=== PATIENT | male | born 1970 | race Caucasian/White ===

== ENCOUNTER 2017-05-30 05:51 | Emergency (ER) | payer MEDICAID ==
[~2017-05-30] VITALS: Ht 172.7 cm; Wt 102.0 kg
[2017-05-30] MEDS ORDERED: ONDANSETRON HCL 4MG/2ML VIAL IV STA (06:19)
[2017-05-30] MEDS ORDERED: SODIUM CHLORIDE 0.9% 1,000 ML IV ONE (06:19)
[2017-05-30 06:49] LABS: BASOPHILS % 0.5 % (0.0-2.0); EOSINOPHILS % 0.2 % (0.0-5.0); HEMOGLOBIN. 18.7 g/dL (14.0-18.0); LYMPHOCYTES % 19.5 % (20.0-50.0); MEAN CORPUSCULAR VOLUME 88.4 fL (80.0-94.0); MEAN PLATELET VOLUME 8.3 fl (7.4-10.4); MONOCYTES % 7.5 % (2.0-8.0); NEUTROPHILS % 72.3 % (40.0-76.0); PLATELET 333 x1000/uL (130-400); RED BLOOD CELL COUNT 6.22 mill/uL (4.7-6.1); RED CELL DISTRIBUTION WIDTH 13.4 % (11.6-14.6)
[2017-05-30 06:50] LABS: INR 1.1; PROTHROMBIN TIME 11.3 sec (9.4-11.6)
[2017-05-30 06:56] LABS: CARBON DIOXIDE 11 mEq/L (21-32); CHLORIDE 104 mEq/L (98-107)
[2017-05-30 06:58] LABS: TROPONIN I < 0.02 ng/mL (0.00-0.04)
[2017-05-30 07:14] LABS: CARBAMAZEPINE < 0.5 ug/mL (4-12); PHENOBARBITAL < 2.1 ug/mL (15.0-40.0)
[2017-05-30] MEDS ORDERED: IOHEXOL-300 100 ML BOTTLE ONE (07:52)
[2017-05-30] MEDS ORDERED: SODIUM CHLORIDE 0.9% 1,500 ML IV ONE (08:08)
[2017-05-30 10:50] VITALS: BP 148/90
== END 2017-05-30 11:08 | disposition left against medical advice (07) ==
LOC: ER 05:51 → ENRESERV 07:04 → CANRESERV 07:04 → ER 11:08 → CANBEDREQ 17:55
DX: R56.9 Unspecified convulsions (principal); R11.0 Nausea; N17.9 Acute kidney failure, unspecified; D72.829 Elevated white blood cell count, unspecified; M54.2 Cervicalgia
CPT/HCPCS: 36415; 70450; 71010; 74177; 80053; 80156; 80165; 80184; 80185; 83690; 84484; 85025; 85610; 93005; 96361; 96374; 99285; J2405; J7030; Q9967; Z7610

== ENCOUNTER 2018-03-16 21:34 | Emergency (ER) | payer SELFPAY ==
[~2018-03-16] VITALS: Ht 172.7 cm; Wt 100.0 kg
[2018-03-17 00:45] VITALS: BP 140/102
== END 2018-03-17 03:30 | disposition left against medical advice (07) ==
LOC: ER 21:34
DX: Z53.21 Procedure and treatment not carried out due to patient leaving prior to being seen by health care provider (principal)
CPT/HCPCS: 82962

== ENCOUNTER 2018-03-19 09:14 | Inpatient (IN) | payer SELFPAY ==
[~2018-03-19] VITALS: Ht 175.3 cm; Wt 98.0 kg
[2018-03-19] VITALS (8 sets, daily range): BP systolic 133–143; BP diastolic 85–111
[2018-03-19] MEDS ORDERED: SODIUM CHLORIDE 0.9% 1,000 ML IV ONE (09:32)
[2018-03-19 09:58] LABS: HEMATOCRIT. 53.1 % (42.0-52.0); HEMOGLOBIN. 17.4 g/dL (14.0-18.0); MEAN CORPUSCULAR HEMOGLOBIN 29.5 pg (28.0-32.0); MEAN CORPUSCULAR VOLUME 90.1 fL (80.0-94.0); MEAN PLATELET VOLUME 8.8 fl (7.4-10.4); PLATELET 458 x1000/uL (130-400); RED CELL DISTRIBUTION WIDTH 14.1 % (11.6-14.6)
[2018-03-19 10:01] LABS: CHLORIDE 106 mEq/L (98-107)
[2018-03-19 10:10] LABS: ETHANOL BLOOD < 10 mg/dL
[2018-03-19] MEDS ORDERED: SODIUM BICARBONATE 8.4% 1 MEQ/ML 50ML SYR IV ONE (10:45)
[2018-03-19 10:46] LABS: PLATELET ESTIMATE INCREASED
[2018-03-19 11:56] LABS: BG BASE EXCESS -0.3 mmol/L (-2.0-2.0); BG CARBOXYHEMOGLOBIN 0.2 % (0.5-1.5); BG DEOXYHEMOGLOBIN 5.9 % (0.0-5.0); BG FRACTION INSPIRED OXYGEN 21; BG HCO3 ACT 23.5 mmol/L (22.0-26.0); BG METHEMOGLOBIN 0.5 % (0.0-1.5); BG OXYGEN SATURATION 94.1 % (92.0-98.5); BG OXYHEMOGLOBIN 93.4 % (94.0-97.0); BG PCO2 35.9 mmHg (35.0-45.0); BG PH 7.433 (7.350-7.450); BG PO2 71.7 mmHg (75.0-100.0); BG SAMPLE SITE RIGHT RADIAL; BG TOTAL HEMOGLOBIN 16.1 g/dL (12.0-18.0); BG VENT MODE ROOM AIR
[2018-03-19] MEDS ORDERED: CLONIDINE 0.1MG TABLET PO PRN (12:15)
[2018-03-19] MEDS ORDERED: LORAZEPAM 2MG/ML CPJ IV PRN ×2 (12:15→22:28)
[2018-03-19] MEDS ORDERED: ONDANSETRON HCL 4MG/2ML VIAL IV PRN (12:15)
[2018-03-19] MEDS ORDERED: CHLORDIAZEPOXIDE 25MG CAPSULE PO SCH (14:55)
[2018-03-19] MEDS: LORAZEPAM 2MG/ML CPJ IV PRN ×2 (15:16→21:37)
[2018-03-19] MEDS ORDERED: CLONIDINE HCL 0.2MG/24HR PATCH TD SCH (16:00)
[2018-03-19] MEDS ORDERED: FOLIC ACID 1 MG, THIAMINE HCL 100 MG, MVI, ADULT NO.1 10 ML in DEXTROSE 5% WATER 1,000 ML IV SCH ×4 (16:00)
[2018-03-19] MEDS ORDERED: LEVETIRACETAM 500MG TABLET PO SCH (21:00)
[2018-03-20] VITALS (28 sets, daily range): BP systolic 111–140; BP diastolic 77–100
[2018-03-20] MEDS: LEVETIRACETAM 1,000 MG in SODIUM CHLORIDE 0.9% 100 ML IV SCH ×3 (00:20→21:58)
[2018-03-20 06:35] LABS: HEMOGLOBIN. 16.3 g/dL (14.0-18.0); MEAN CORPUSCULAR HEMOGLOBIN 29.6 pg (28.0-32.0); MEAN CORPUSCULAR VOLUME 87.3 fL (80.0-94.0); MEAN PLATELET VOLUME 9.5 fl (7.4-10.4); PLATELET 316 x1000/uL (130-400); RED CELL DISTRIBUTION WIDTH 13.8 % (11.6-14.6)
[2018-03-20 07:17] LABS: PLATELET ESTIMATE NORMAL
[2018-03-20] MEDS: DEXT 5%/0.45% NACL KCL 40MEQ/L 1,000 ML IV SCH ×2 (09:05→20:22)
[2018-03-20 09:51] LABS: BG BASE EXCESS -2.1 mmol/L (-2.0-2.0); BG CARBOXYHEMOGLOBIN 0.3 % (0.5-1.5); BG DEOXYHEMOGLOBIN 4.9 % (0.0-5.0); BG FRACTION INSPIRED OXYGEN 21; BG HCO3 ACT 20.2 mmol/L (22.0-26.0); BG METHEMOGLOBIN 0.4 % (0.0-1.5); BG OXYGEN SATURATION 95.1 % (92.0-98.5); BG OXYHEMOGLOBIN 94.4 % (94.0-97.0); BG PCO2 29.1 mmHg (35.0-45.0); BG PH 7.459 (7.350-7.450); BG PO2 70.9 mmHg (75.0-100.0); BG SAMPLE SITE RIGHT BRACHIAL; BG VENT MODE ROOM AIR
[2018-03-20 09:59] LABS: CHLORIDE 107 mEq/L (98-107)
[2018-03-20] MEDS ORDERED: FOLIC ACID 1 MG, THIAMINE HCL 100 MG, MVI, ADULT NO.1 10 ML in DEXTROSE 5% WATER 1,000 ML IV NR ×4 (11:30)
[2018-03-20 11:57] LABS: INR 1.1; PROTHROMBIN TIME 10.7 sec (9.1-11.1)
[2018-03-20 12:53] LABS: CLARITY URINE CLEAR (CLEAR); COLOR URINE YELLOW (YELLOW); KETONES URINE TRACE (NEGATIVE); LEUKOCYTE ESTERASE URINE NEGATIVE (NEGATIVE); NITRITE URINE NEGATIVE (NEGATIVE); OCCULT BLOOD URINE TRACE (NEGATIVE); PROTEIN URINE 1+ (NEGATIVE); SPECIFIC GRAVITY URINE 1.014 (1.005-1.030); UROBILINOGEN URINE 0.2 E.U./dL (0.2-1.0)
[2018-03-20 13:49] LABS: *AMPHETAMINES SCREEN URINE NEGATIVE (NEGATIVE); *BARBITURATES SCREEN URINE NEGATIVE (NEGATIVE); *BENZODIAZEPINES SCREEN URINE PRESUMTIVE POSITIVE (NEGATIVE); *COCAINE SCREEN URINE NEGATIVE (NEGATIVE)
[2018-03-20 13:50] LABS: CANNABINOID URINE SCREEN NEGATIVE (NEGATIVE); METHADONE URINE SCREEN NEGATIVE (NEGATIVE); OPIATES URINE SCREEN NEGATIVE (NEGATIVE)
[2018-03-20 14:14] LABS: PHENCYCLIDINE URINE SCREEN NEGATIVE (NEGATIVE)
[2018-03-20] MEDS: METRONIDAZOLE 500 MG PREMIX 100 ML IV SCH ×2 (14:19→23:53)
[2018-03-20] MEDS: CEFEPIME 2,000 MG in DEXT 5% WATER 100 ML IV SCH (14:19)
[2018-03-20 22:21] LABS: CREATINE KINASE 502 IU/L (39-308)
[2018-03-21] VITALS (13 sets, daily range): BP systolic 124–163; BP diastolic 79–105
[2018-03-21] MEDS: METRONIDAZOLE 500 MG PREMIX 100 ML IV SCH (05:40)
[2018-03-21 06:31] LABS: BASOPHILS % 0.7 % (0.0-2.0); EOSINOPHILS % 0.1 % (0.0-5.0); HEMATOCRIT. 46.9 % (42.0-52.0); HEMOGLOBIN. 15.9 g/dL (14.0-18.0); LYMPHOCYTES % 7.5 % (20.0-50.0); MEAN CORPUSCULAR HEMOGLOBIN 29.6 pg (28.0-32.0); MEAN CORPUSCULAR VOLUME 87.3 fL (80.0-94.0); MEAN PLATELET VOLUME 9.8 fl (7.4-10.4); MONOCYTES % 9.2 % (2.0-8.0); NEUTROPHILS % 82.5 % (40.0-76.0); PLATELET 272 x1000/uL (130-400); RED BLOOD CELL COUNT 5.37 mill/uL (4.7-6.1); RED CELL DISTRIBUTION WIDTH 13.9 % (11.6-14.6)
[2018-03-21] MEDS ORDERED: POTASSIUM CHLORIDE 20MEQ TABLET SR PO NR (09:30)
[2018-03-21] MEDS: LEVETIRACETAM 1,000 MG in SODIUM CHLORIDE 0.9% 100 ML IV SCH ×2 (09:45→22:24)
[2018-03-21] MEDS: AMLODIPINE 5MG TABLET PO SCH (10:06)
[2018-03-21] MEDS: CEFEPIME 2,000 MG in DEXT 5% WATER 100 ML IV SCH (14:53)
[2018-03-21] MEDS: DEXT 5%/0.45% NACL KCL 40MEQ/L 1,000 ML IV SCH (15:25)
[2018-03-22] VITALS (13 sets, daily range): BP systolic 100–159; BP diastolic 65–86
[2018-03-22 06:55] LABS: BASOPHILS % 0.6 % (0.0-2.0); EOSINOPHILS % 0.3 % (0.0-5.0); HEMOGLOBIN. 15.4 g/dL (14.0-18.0); LYMPHOCYTES % 7.6 % (20.0-50.0); MEAN CORPUSCULAR VOLUME 87.8 fL (80.0-94.0); MONOCYTES % 7.4 % (2.0-8.0); NEUTROPHILS % 84.1 % (40.0-76.0); PLATELET 258 x1000/uL (130-400); RED BLOOD CELL COUNT 5.13 mill/uL (4.7-6.1); RED CELL DISTRIBUTION WIDTH 13.7 % (11.6-14.6)
[2018-03-22 07:44] LABS: CHLORIDE 110 mEq/L (98-107)
[2018-03-22] MEDS: AMLODIPINE 5MG TABLET PO SCH (08:29)
[2018-03-22] MEDS: HYDROCODONE/ACETAMINOPHEN 5/325MG TABLET PO PRN (08:30)
[2018-03-22] MEDS: LEVETIRACETAM 1,000 MG in SODIUM CHLORIDE 0.9% 100 ML IV SCH ×2 (09:26→21:38)
[2018-03-22] MEDS: DEXT 5%/0.45% NACL KCL 40MEQ/L 1,000 ML IV SCH (10:27)
[2018-03-22] MEDS: LORAZEPAM 2MG/ML CPJ IV PRN ×2 (10:28→19:00)
[2018-03-22] MEDS ORDERED: LOPERAMIDE HCL 2MG CAPSULE PO PRN (11:30)
[2018-03-23] VITALS (11 sets, daily range): BP systolic 112–146; BP diastolic 73–89
[2018-03-23] MEDS: HYDROCODONE/ACETAMINOPHEN 5/325MG TABLET PO PRN (00:27)
[2018-03-23 05:51] LABS: CHLORIDE 111 mEq/L (98-107)
[2018-03-23 06:05] LABS: BASOPHILS % 0.7 % (0.0-2.0); EOSINOPHILS % 1.7 % (0.0-5.0); HEMATOCRIT. 45.2 % (42.0-52.0); HEMOGLOBIN. 15.3 g/dL (14.0-18.0); LYMPHOCYTES % 14.6 % (20.0-50.0); MEAN CORPUSCULAR HEMOGLOBIN 29.8 pg (28.0-32.0); MEAN CORPUSCULAR VOLUME 88.1 fL (80.0-94.0); MEAN PLATELET VOLUME 9.5 fl (7.4-10.4); MONOCYTES % 9.5 % (2.0-8.0); NEUTROPHILS % 73.5 % (40.0-76.0); PLATELET 243 x1000/uL (130-400); RED BLOOD CELL COUNT 5.13 mill/uL (4.7-6.1); RED CELL DISTRIBUTION WIDTH 13.9 % (11.6-14.6)
[2018-03-23] MEDS: LEVETIRACETAM 1,000 MG in SODIUM CHLORIDE 0.9% 100 ML IV SCH ×2 (08:39→21:41)
[2018-03-23] MEDS: AMLODIPINE 5MG TABLET PO SCH (08:39)
[2018-03-23] MEDS ORDERED: POTASSIUM CHLORIDE 20MEQ TABLET SR PO SCH (08:45)
[2018-03-24] VITALS (8 sets, daily range): BP systolic 99–154; BP diastolic 61–83
[2018-03-24] MEDS: AMLODIPINE 5MG TABLET PO SCH (09:18)
[2018-03-24] MEDS: LEVETIRACETAM 1,000 MG in SODIUM CHLORIDE 0.9% 100 ML IV SCH (09:29)
[2018-03-24] MEDS ORDERED: CLON1PAT11 TD (10:28)
== END 2018-03-24 17:30 | disposition home or self-care (01) | DRG 812 ==
LOC: ER 09:36 → 5EST 11:55 → EDBEDREQTM 11:59 → EDBEDREQSVC 11:59 → EDBEDREQ 11:59 → ENRESERV 12:31 → MICUSO 03-20 01:45 → 3WST 03-20 17:48
PROVIDERS: ADMIT Internal Medicine; ATTEND Internal Medicine
PROC: 4A00X4Z Measurement of Central Nervous Electrical Activity, External Approach (ICD-10-PCS; principal; 2018-03-24)
DX: T42.4X1A Poisoning by benzodiazepines, accidental (unintentional), initial encounter (principal); G92 Toxic encephalopathy; R56.9 Unspecified convulsions; I11.9 Hypertensive heart disease without heart failure; R00.0 Tachycardia, unspecified; T40.2X1A Poisoning by other opioids, accidental (unintentional), initial encounter; F11.23 Opioid dependence with withdrawal; F10.20 Alcohol dependence, uncomplicated; D72.829 Elevated white blood cell count, unspecified; F13.239 Sedative, hypnotic or anxiolytic dependence with withdrawal, unspecified; G89.29 Other chronic pain; R73.9 Hyperglycemia, unspecified; Y92.89 Other specified places as the place of occurrence of the external cause
CPT/HCPCS: 36415; 36600; 70450; 70551; 71045; 80048; 80053; 80305; 81003; 82375; 82550; 82805; 83036; 83735; 85025; 85610; 87040; 92610; 93005; 93306; 96361; 96374; 97116; 97162; 99285; C1893; G0482; J0692; J1953; J2060; J3411; J3490; J7030; J7040; J7050; J7060; J7070; A4315